=== PATIENT | male | born 1955 | race Caucasian/White ===

== ENCOUNTER 2021-09-06 05:23 | Inpatient (IN) | payer MEDICARE, BC ==
[2021-08-30 15:08] LABS: BASOPHILS % (AUTO) 0.5 % (0-1); EOSINOPHILS # (AUTO) 0.1 X10'3 (0-0.9); EOSINOPHILS % (AUTO) 1.7 % (0-6); LYMPHOCYTES # (AUTO) 1.6 X10'3 (1.1-4.8); LYMPHOCYTES % (AUTO) 27.5 % (21-51); MEAN CORPUSCULAR HEMOGLOBIN 31.3 PG (27.0-31.0); MEAN CORPUSCULAR HGB CONC 34.5 g/dL (33.0-36.5); MEAN CORPUSCULAR VOLUME 90.8 FL (78-98); MONOCYTES # (AUTO) 0.7 X10'3 (0-0.9); MONOCYTES % (AUTO) 12.5 % (2-12); NEUTROPHILS # (AUTO) 3.3 X10'3 (1.8-7.7); NEUTROPHILS % (AUTO) 57.8 % (42-75); PRE OP HEMATOCRIT 40.6 % (42.0-52.0); PRE OP PLATELET COUNT 263 X10'3 (140-440); RED BLOOD COUNT 4.47 X10'6 (4.70-6.10); RED CELL DISTRIBUTION WIDTH 13.5 % (11.5-14.5)
[2021-08-30 15:23] LABS: ALBUMIN/GLOBULIN RATIO 1.1 (1.1-1.5); ALKALINE PHOSPHATASE 50 IU/L (46-116); BLOOD UREA NITROGEN 18 MG/DL (7-18); BUN/CREATININE RATIO 23.1 (5.4-32.0); CALCIUM 8.8 MG/DL (8.5-10.1); CHLORIDE 106 MMOL/L (99-107); CREATININE 0.78 MG/DL (0.60-1.10); PRE OP ALT 38 U/L (30-65); PRE OP ANION GAP 7 (8-16); PRE OP AST 24 U/L (10-37); PRE OP BILIRUB, TOTAL 0.6 MG/DL (0.0-1.0); PRE OP GLUCOSE 86 MG/DL (70-104); PRE OP POTASSIUM 3.9 MMOL/L (3.4-5.1); PRE OP SODIUM 140 MMOL/L (135-145); TOTAL CARBON DIOXIDE 27.4 MMOL/L (24-32); TOTAL PROTEIN 7.5 G/DL (6.4-8.2); eGFR > 90 ML/MIN
[2021-09-06] VITALS (20 sets, daily range): BP systolic 87–159; BP diastolic 48–97
[~2021-09-06] VITALS: Ht 177.8 cm; Wt 85.4 kg
[~2021-09-06 05:23] MED LIST: LANS15TA5 PO; ringers solution, lacted 1,000 ML IV SCH
[2021-09-06] MEDS ORDERED: oxyCODONE SR 10mg (sust. release) tab -2 tabs (20mg) PO ONE (05:30)
[2021-09-06] MEDS ORDERED: gabapentin 300mg capsule PO ONE (05:30)
[2021-09-06] MEDS ORDERED: acetaminophen 325mg tablet PO ONE (05:30)
[2021-09-06] MEDS ORDERED: ceFAZolin inj. 2,000 MG in dextrose 5%-water 100 ML IV ONE (05:30)
[2021-09-06] MEDS ORDERED: vancomycin 1,500 MG in NS 300ml IV soln IV ONE (05:30)
[2021-09-06] MEDS ORDERED: famotidine 20mg tablet PO ONE (05:30)
[2021-09-06] MEDS ORDERED: celeCOXIB 100mg capsule PO ONE (05:30)
[2021-09-06] MEDS ORDERED: tranexamic acid inj. 1,000 MG in 0.7% saline 100 ML PMX IV ONE (05:30)
[2021-09-06] MEDS ORDERED: metoclopramide 5 mg/ml inj IV ONE (05:30)
--- NOTE | 2021-09-06 05:30 | NUR ---
CSM: PEDAL PULSES PRESENT AND MARKED. PATIENT STATES THEY READ THE BROCHURE BUT DID NOT WATCH THE VIDEO. THEY WERE NOT PRESCRIBED THE MUPIROCIN CREAM. EDUCATED PATIENT ON THE USE OF THE INCENTIVE SPIROMETER AND ITS IMPORTANCE.
[2021-09-06] MEDS ORDERED: ROPIVAcaine 0.5% (5mg/ml) 30ml vial ONE (06:49)
[2021-09-06] MEDS ORDERED: cloNIDine hcl/PF 100mcg/ml inj ONE (06:49)
[2021-09-06] MEDS ORDERED: epiNEPHrine 1 mg/ml inj ONE (06:49)
[2021-09-06] MEDS ORDERED: ketorolac trometh. 30mg/ml inj. ONE (06:50)
[2021-09-06] MEDS ORDERED: vancomycin 1,000mg inj ONE (06:50)
[2021-09-06] MEDS ORDERED: tranexamic acid inj. 850 MG in normal saline 100ml IV soln 91.5 ML IV ONE ×2 (07:05→16:00)
[2021-09-06] MEDS ORDERED: MIDAZolam 1mg/ml 10ml vial ONE (07:09)
[2021-09-06] MEDS ORDERED: ringers solution, lacted 1,000 ML IV SCH (07:40)
[2021-09-06] MEDS ORDERED: morphine 2 MG/ML inj. syringe IV PRN (07:40)
[2021-09-06] MEDS ORDERED: morphine 4 MG/ML inj SYRINge IV PRN (07:40)
[2021-09-06] MEDS ORDERED: ondansetron/PF 4mg/2ml inj IV PRN ×2 (07:40→11:28)
[2021-09-06] MEDS ORDERED: fentaNYL/PF 50MCG/1 ML 2ML syringe IV PRN ×2 (07:40)
[2021-09-06] MEDS ORDERED: hydrALAZINE 20mg/ml inj. IV PRN (07:40)
[2021-09-06] MEDS ORDERED: enalaprilat dihydrate 2.5mg/2ml vial IV PRN (07:40)
[2021-09-06] MEDS ORDERED: propofol inj 20 ML IV ONE (07:53)
[2021-09-06] MEDS ORDERED: LIDOcaine 1%/PF 5ML 10 MG/ML VIAL ONE (07:56)
[2021-09-06] MEDS ORDERED: gabapentin 300mg capsule PO SCH ×2 (08:00→21:00)
[2021-09-06] MEDS ORDERED: multivitamins, therapeutics tablet PO SCH (08:00)
[2021-09-06] MEDS ORDERED: ascorbic acid 500mg tablet PO SCH ×2 (08:00→20:00)
[2021-09-06] MEDS ORDERED: aspirin 325mg tablet PO SCH (08:30)
--- NOTE | 2021-09-06 08:44 | NUR ---
Received from OR via ORTHO BED WITH [facility] , accompanied by Anesthesiologist SHARON and report given by Anesthesiolgist. PATIENT WITH 18G PIV IN RIGHT UE RUNNING LR AT 100. PATIENT WITH + DP TO LEFT FOOT ON DOPPLER. 10L MASK ON WITH 100% SAUTRATIONS. KNEE IMMOBILIZER PRESENT WITH ON Q PUMP PRESENT TO LEFT KNEE. SPINAL SENSATION LEVEL AT T12-L1 AREA. Addendum: 09/06/21 at 0901 by Rafael Palumbo RN, RN Amended: Links added.
--- NOTE | 2021-09-06 10:24 | NUR ---
CARE OF PATIENT AND REPORT HAS BEEN CALLED. ALL QUESTIONS ANSWERED TO ACCEPTING RN. PATIENT HAS MET ALL CRITERIA FOR TRANSFER TO THE SURGICAL ORTHO FLOOR. VSS. DRESSINGS INTACT. BED LOW, CALL LIGHT PRESENT AND 2 RAILS UP. RN PRESENT TO ACCEPT. RAJINDER SANTOS PRESENT TO ACCEPT CARE AND ASSESS PATIENT. ONE BAG OF LABELED BELONGINGS SENT WITH PATIENT WELL CELL PHONE. Addendum: 09/06/21 at 1039 by Rafael Abraham - RAJINDER RN Amended: Links added.
[2021-09-06] MEDS ORDERED: potassium cl 20mEq in 1/2 NS 1,000 ML IV SCH (11:28)
[2021-09-06] MEDS ORDERED: naloxone 0.4 mg/ml inj IV PRN (11:29)
[2021-09-06] MEDS ORDERED: bisacodyl 10mg suppository rectal RC PRN (11:31)
[2021-09-06] MEDS ORDERED: HYDROmorphone 1 mg/ml syringe IV PRN (11:43)
[2021-09-06] MEDS ORDERED: HYDROmorphone inj. 0.5 MG/0.5 ML DISP.SYRIN IV PRN (11:43)
[2021-09-06] MEDS ORDERED: HYDROcodone/acetaminophen 10/325mg tab PO PRN (11:43)
[2021-09-06] MEDS ORDERED: acetaminophen 325mg tablet PO PRN (12:00)
[2021-09-06] MEDS: HYDROcodone/acetaminophen 10/325mg tab PO PRN ×2 (13:26→17:31)
[2021-09-06] MEDS ORDERED: diphenhydrAMINE 25mg capsule PO PRN ×2 (14:00→21:00)
[2021-09-06] MEDS ORDERED: VANCOMYCIN 1,500MG inj. 1,500 MG in dextrose 5% water 500ml 500 ML IV ONE (16:00)
[2021-09-06] MEDS ORDERED: cefazolin/dext.iso 2gm/100ml 100 ML IV SCH (16:00)
[2021-09-06] MEDS ORDERED: sennosides 8.6mg tablet PO SCH (21:00)
[2021-09-06] MEDS ORDERED: magnesium hydroxide 30ml (MOM) UD suspension PO PRN (21:00)
[2021-09-07] MEDS ORDERED: lansoprazole 15mg solutab PO SCH (08:00)
[2021-09-07] MEDS ORDERED: multivitamins, therapeutics tablet PO SCH (08:00)
[2021-09-07] MEDS ORDERED: aspirin 325mg tablet PO SCH (08:30)
[2021-09-07] MEDS ORDERED: celeCOXIB 100mg capsule PO SCH (20:00)
== END 2021-09-06 18:45 | disposition home or self-care (01) | DRG 470 ==
LOC: PAS 05:23 → ORTHO 4S 07:04
PROVIDERS: ADMIT Orthopaedic Surgery; ATTEND Orthopaedic Surgery
PROC: 0SRB06Z Replacement of Left Hip Joint with Oxidized Zirconium on Polyethylene Synthetic Substitute, Open Approach (ICD-10-PCS; principal; 2021-09-06 07:03)
DX: M16.12 Unilateral primary osteoarthritis, left hip (principal); Z79.82 Long term (current) use of aspirin; Z79.899 Other long term (current) drug therapy
CPT/HCPCS: 36415; 72170; 80053; 82948; 85025; 86885; 86900; 86901; 87081; 97110; 97116; 97161; A6258; A6449; A7000; C1776; G0378; J0171; J0690; J0735; J1885; J2250; J2704; J2765; J2795; J3370; J3480; J3490; J7040; J7060; J7120